=== PATIENT | female | born 1970 | race Two or more races ===

== ENCOUNTER → 2016-06-09 | Day surgery (SDC) | payer OTHER ==
[~2016-06-09] VITALS: Ht 154.9 cm; Wt 88.5 kg
[~2016-06-09] MED LIST: AMLO10TA2 PO; BUPIVAC MPF-EPI 0.5%-1:200000 30 ML VIAL. ONE; CEFAZOLIN 2GM PREMIX 50 ML IV ONE; DEXAMETHASONE SOD PHOS 20 MG/5 ML VIAL. ONE; EPHEDRINE PF IN SALINE 50 MG/5 ML DISP.SYRIN. IV ONE; FENTANYL PF 100 MCG/2 ML VIAL. IV PRN; FENTANYL PF 250 MCG/5 ML VIAL. ONE; FERR325T72 PO; GLIM2TAB PO; HYDROMORPHONE 2 MG/ML VIAL. IV PRN; IBUP200T58 PO; IV RINGERS,LACTATED 1000ML 1,000 ML IV SCH; LIDOCAINE 1% 1 ML SYRINGE. ID PRN; LISI1TAB7 PO; METF500T PO; MIDAZOLAM HCL 2 MG/2 ML VIAL. ONE; MORPHINE SULFATE 2 MG/ML DISP.SYRIN. IV PRN; ONDANSETRON PF 4 MG/2 ML VIAL. IV PRN; ONDANSETRON PF 4 MG/2 ML VIAL. ONE; OXYC-323 PO; OXYCODONE/APAP 5/325 TABLET. PO PRN; PHENYLEPHRINE in 0.9% NACL PF 1 MG/10 ML DISP.SYRIN. IV ONE; PROCHLORPERAZINE 10 MG/2 ML VIAL. IV PRN; PROPOFOL 20 ML IV ONE; SENN1TAB70 PO
[2016-06-09 10:56] LABS: ALBUMIN 3.2 g/dL (3.4-5.0); CALCIUM 8.9 mg/dL (8.5-10.1); CREATININE 0.6 mg/dL (0.6-1.0); GFR 107.2; POTASSIUM 4.1 mmol/L (3.5-5.1)
[2016-06-09 11:25] LABS: NEG OBC UR NEG; POS OBC UR POS
[2016-06-09 11:28] LABS: BASO # 0.1 x10^3/uL (0.0-0.2); BASO % 1 % (0-3); EOS % 4 % (0-3); LYMPH # 3.3 x10^3/uL (1.0-4.8); LYMPH % 26 % (24-48); MEAN CORPUSCULAR HEMOGLOBIN 23 pg (25-35); MEAN CORPUSCULAR HGB CONC 31 g/dL (31-37); MEAN CORPUSCULAR VOLUME 74 fL (79-100); MONO % 6 % (0-9); NEUT % 64 % (31-73); PLATELET COUNT 356 x10^3/uL (140-400); RED CELL DISTRIBUTION WIDTH 17.7 % (11.5-14.5); WHITE BLOOD COUNT 12.9 x10^3/uL (4.0-11.0)
--- NOTE | 2016-06-09 12:02 | DISCH ---
DISCHARGE INSTRUCTIONS Condition on Discharge Condition on Discharge: Stable Activity After Discharge Activity Instructions for Disc: Activity as tolerated, Avoid exertion Driving Instructions after Dis: Do not drive today Diet after Discharge Diet after Discharge: Regular Wound Incision Care Other wound/incision instructi: july Follow-Up Follow up with: Dick next week MARTIN KELLY MD Jun 09, 2016 12:02
--- NOTE | 2016-06-09 12:10 | PDOC ---
BRIEF OPERATIVE NOTE Date: Jun 09, 2016 Pre-Op Diagnosis right breast mass, 3:00 Post-Op Diagnosis same Procedure Performed excision Surgeon Dick Anesthesia Type: General Blood Loss 5cc IV Fluid 500cc Specimens Obtained breast mass 3:00 #1 and # 2 Findings firm fibrous tissue Complications none Additional Remarks # [id number] MARTIN KELLY MD Jun 09, 2016 12:10
--- NOTE | 2016-06-09 13:08 | OP ---
DATE OF SURGERY: 06/09/2016 PREOPERATIVE DIAGNOSIS: Mass, right breast, 3 o' clock circumareolarly. POSTOPERATIVE DIAGNOSIS: Mass, right breast, 3 o' clock circumareolarly. PROCEDURE: Excision of same. SURGEON: Timothy Kelly MD ANESTHESIA: General. ESTIMATED BLOOD LOSS: 5. INTRAVENOUS FLUIDS: 500. INDICATIONS: The patient is a 45-year-old with a palpable change at 3 o' clock circumareolarly right breast. OPERATIVE REPORT: The patient brought to the operating suite, given a general endotracheal anesthetic and the right breast was prepped and draped in usual sterile fashion. The skin incision which have been sae in the preop holding area with the patient's assistance from 2-4 o'clock circumareolarly was infiltrated with local anesthetic, sharply incised and dissection carried down over to some firm fibrous tissue. This was harvested. Some tissue medially adjacent to the first specimen was also removed. Hemostasis with cautery. When a correct sponge count was obtained, the wound was closed by approximating the breast tissue with 3-0 Vicryl. Skin was closed with a subcuticular 4-0 Monocryl. Steri-Strips and sterile dressing applied. The patient awakened from her anesthetic and taken to the recovery room in satisfactory condition. TIMOTHY KELLY MD DR: LEO/palak JOB#: [id number] / [id number]
[2016-06-09 13:20] VITALS: BP 109/64
--- NOTE | 2016-06-11 09:28 | PATHOLOGY ---
PATHOLOGY REPORT * * * * * * * * FINAL DIAGNOSIS: A. Breast tissue, right breast biopsy at 3:00, #1: - Abscess. - Focal chronic inflammation and few noncaseating granulomas. - Focal proliferative fibrocystic changes with focal moderate/florid ductal epithelial hyperplasia. B. Breast tissue, right breast biopsy at 3:00, #2: - Focal fibrocystic changes and mild chronic inflammation. COMMENT: Sections of right breast biopsy #1 show proliferative fibrocystic changes, an abscess, and focal chronic inflammation with a few small non-caseating granulomas. Special stains for acid fast bacilli and fungi are obtained and yield the following results: AFB stain (A3): negative for acid fast organisms; GMS (A3): negative for yeast/fungi. Sections of right breast biopsy #2 show focal fibrocystic changes and mild chronic inflammation. There is no evidence of malignancy. (JPM:csd; d/t: 06/10/2016) Special stains: AFB and GMS each performed on A3 REPORT ELECTRONICALLY SIGNED BY: Saran Mcmahan M.D. DATE/TIME: 06/11/2016 09:27 * * * * * * * * GROSS PATHOLOGY: A. The specimen is received in formalin labeled "Jessica Sears, right breast biopsy 3:00 #1". Received is a 3 g unoriented segment of yellow-emery lobulated tissue measuring 2.2 x 2.1 x 1.5 cm in greatest dimensions. The surgical margin is inked. Sectioning reveals white-emery, fibrous to yellow-emery, lobulated cut surfaces throughout. The specimen is submitted entirely in cassettes A1 through A4. The cold ischemic time is 1 minute. The total formalin fixation time is 9 hours and 50 minutes. B. The specimen is received in formalin labeled "Jessica Sears, right breast biopsy 3:00 #2". Received is a segment of yellow-emery lobulated tissue measuring 2.5 x 2.2 x 1.4 cm in greatest dimensions. The surgical margin is inked. Sectioning reveals white-emery, fibrous to yellow-emery, lobulated cut surfaces throughout. Specimen is submitted entirely in cassettes B1 through B5. Cold ischemic time is 1 minute. The total formalin fixation time is 9 hours and 40 minutes. (CAA; 06/09/2016) INITIAL CPT CODE(S): A; 68943, 11567, 04086 B; 09483 Professional services performed by [facility] at [facility] [address] [place] [address] Technical services performed by [facility] at [address] [place] [address], [address], [place] [address]. SPECIMEN(S) RECEIVED: A.Right breast biopsy at 3 o'clock #1 B.Right breast biopsy at 3 o'clock #2 CLINICAL HISTORY: Right breast mass PATIENT: SEARSJESSICA MONROE /AGE: 1012/14/1970 (Age: 45) PATIENT #: [id number] ALT CASE #: SPECIMEN COLLECTION DATE: 06/09/2016 SPECIMEN RECEIVED DATE: 06/09/2016 [facility] - [address] [place] [address] - PHONE: [phone] * * * END OF REPORT * * *
== END | disposition home or self-care (01) ==
LOC: SURG 10:00
PROVIDERS: ATTEND Surgery
DX: N63 Unspecified lump in breast (principal); I10 Essential (primary) hypertension; E11.9 Type 2 diabetes mellitus without complications; D64.9 Anemia, unspecified; Z87.440 Personal history of urinary (tract) infections
CPT/HCPCS: 19120; 36415; 80048; 81025; 82040; 82947; 85027; C1769; J0690; J1100; J2250; J2370; J2405; J2704; J3010; J3490